=== PATIENT | male | born 1995 | race Caucasian/White ===

== ENCOUNTER 2018-02-23 07:26 | Emergency (ER) | payer MEDICAID, SELFPAY ==
[2018-02-23 07:27] VITALS: BP 129/64; PULSE 94; RESP 15; TEMP 37; O2SAT 99; BMI 24.4
--- NOTE | 2018-02-23 07:39 | CT_ITS ---
STUDY: CT ABDOMEN AND PELVIS WITH CONTRAST REASON FOR EXAM: Male, 22 years old. RIGHT FLANK PAIN. RADIATION DOSAGE (If Supplied By Facility): CTDIvol = ( 13.84 ) mGy, DLP = ( 938.81 ) mGycm TECHNIQUE: Transaxial images were obtained from the dome of the diaphragm to the symphysis pubis without oral contrast. 100ML ml of Isovue 300 contrast was administered. Sagittal and coronal images were reconstructed. Individualized dose optimization techniques were used for this CT. COMPARISON: None. FINDINGS: The visualized lung bases are unremarkable. The visualized portions of the heart are within normal limits. Normal liver. Normal gallbladder and extrahepatic biliary system. Normal spleen. Normal pancreas. Normal bilateral adrenal glands. Normal right kidney. Normal left kidney. Normal visualized stomach. Normal small intestine. Normal colon. There is non-visualization of the appendix. Normal abdominal aorta. Normal inferior vena cava. Normal retroperitoneum. Normal urinary bladder. Normal abdominal wall. Normal osseous structures. CT/Abdomen/Pelvis WITH Contrast IMPRESSION: No evidence of acute intra-abdominal or intrapelvic abnormality. Electronically Signed: Ada Urena MD at 10:13 EST Tel , Service support ,
[2018-02-23] MEDS: 0.9% Normal Saline 1,000 ML 125 ML IV (07:45)
[2018-02-23] MEDS: Ketorolac 30 MG/ML Syringe IV (07:46)
--- NOTE | 2018-02-23 07:54 | ED.VISSUMM ---
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 He states that a very odd pain that is not necessarily cramping and not necessarily stabbing. He states it is hard for him to describe but he states he is never felt it before. He denies any nausea vomiting or diarrhea. He had a bowel movement prior to arrival in the emergency department which she states was normal. He has had no anorexia. He last ate spaghetti just prior to arrival. No urinary symptoms. No fevers. It is uncomfortable for him to walk. Physical Examination: Afebrile vital signs are stable Gen: Well-nourished well-developed Head: Normocephalic atraumatic Eyes: Perrl EOMI ENT: TMs clear no rhinorrhea moist mucous membranes Neck: Supple no lymphadenopathy no JVD nontender CVS: Regular rate rhythm no murmurs normal S1-S2 Respiratory: No distress clear to auscultation bilaterally chest nontender Abdomen: Soft mild periumbilical tenderness no guarding or rebound nondistended normal bowel sounds no masses Back: Nontender Extremity: Nontender no edema Skin: Normal color no rash Neuro: alert orientated ?3 CN II-XII intact normal strength sensation reflexes gait cerebellar Psych: Normal affect normal mood Test Results: White count is normal with a normal differential. Chemistry showed a glucose of 73. Urinalysis is normal. CT the abdomen pelvis demonstrated no obvious intra-abdominal pathology. There was nonvisualization of the appendix. Emergency Department Course and Treatment: IV was established the patient received IV fluids and Toradol. Repeat examination I do not elicit any pain in the right lower quadrant. He still has a ill-defined discomfort in the periumbilical region. Patient will be written for Bentyl. He will follow-up if not improving in 24 hours. He may return to the emergency department at any time if he has concerns or is worsening or not improving. Impression: 1. Acute abdominal pain This note was generated with [employer] dictation software. It may contain incorrect words, spelling, and punctuation that were not noted in review of the chart prior to signing ED Disposition - Plan for ED Patient: Disposition: Home or Assisted Living Chief Complaint: Abd Pain Instructions: ED Abdominal Pain Unkn Cause Prescriptions: Dicyclomine HCl [Bentyl] 20 mg PO TIDAC PRN #20 cap PRN Reason: abdominal pain Referrals: Sidra Oshea MD [Primary Care Provider] - (1-2 days if not improving )
[2018-02-23 07:59] LABS: Absolute Lymphocyte Count 3.26 X10^3/ul (0.83-4.51); Absolute Neutrophil Count 5.9 X10^3/uL (2.0-7.7); Basophil# 0.05 X10^3/uL; Basophil% 0.5 % (0-1); Eosinophil# 0.17 X10^3/uL; Eosinophils% 1.6 % (0-5); Hematocrit 43.4 % (40-54); Hemoglobin 15.1 g/dl (13.0-16.5); Lymphocyte # 3.26 X10^3/ul (4.0); Lymphocyte % 31.2 % (19-41); Mean Corp Hgb Conc 34.8 g/gl (32-36); Mean Corpuscular Hgb 30.9 pg (27.0-32.0); Mean Corpuscular Volume 88.9 fL (80-94); Mean Platelet Vol. 9.7 fl (6.2-12.0); Monocyte# 1.03 X10^3/uL; Monocyte% 9.8 % (0-10); Neutrophil # 5.92 X10^3/uL (2.7-7.7); Neutrophil % 56.6 % (47-70); POSITIVE COUNT NO; POSITIVE DIFFERENTIAL NO; POSITIVE MORPHOLOGY NO; Platelet Count 290 K/mm3 (150-450); RBC Distribution Width CV 13.3 % (11.6-14.6); RBC Distribution Width SD 42.8 fl (35.1-43.9); Red Blood Count 4.88 M/mm3 (4.6-6.2); White Blood Count 10.5 K/mm3 (4.4-11.0)
[2018-02-23 08:06] LABS: Color, Urine Yellow (Yellow); Glucose, Dipstick Normal (Normal); Ketone-Dipstick Negative (Negative); Leukocyte Esterase-Dipstick Negative /ul (Negative); Mucous, Urine 0 SEEN /hpf (<or=2+); Nitrite-Dipstick Negative (Negative); Occult Blood-Urine 50 /ul (Negative); Protein-Dipstick Negative (Negative); Red Blood Cells-Urine 0 SEEN /hpf (0-5); Squamous Epithelial Cells - UA 0 SEEN /hpf (0-5); Urine Bilirubin Dipstick Negative (Negative); Urine Clarity Sl. Cloudy (Clear); Urine Urobilinogen Normal (Normal); White Blood Cells 0 SEEN /hpf (0-5)
[2018-02-23 08:12] LABS: ALB/GLOB Ratio 1.1 RATIO (0.9-2.4); AST(SGOT) 99 U/L (15-37); Alanine Aminotransfer ALT/SGPT 42 U/L (16-61); Albumin, Serum 3.9 g/dL (3.2-5.0); Alkaline Phosphatase 75 U/L (45-117); Anion Gap 5 (5-15); BUN 16 mg/dL (7-18); BUN/Creat Ratio 15.1 RATIO (10-20); Calcium,Total 8.9 mg/dL (8.5-10.1); Chloride 102 mmol/L (98-107); Creatinine, Serum 1.06 mg/dL (0.70-1.30); EST Glomerular Filtration Rate 94 mL/min (>60); Est Glom Filt Rate - Afr Amer 114 mL/min (>60); Estimated Creatinine Clearance 114.78 ml/min; Globulin 3.6 g/dL (2.2-4.2); Glucose 73 mg/dL (74-106); Lipase 56 U/L (73-393); Potassium 3.7 mmol/L (3.5-5.1); Protein, Total 7.5 g/dL (6.4-8.2); Sodium Level 136 mmol/L (136-145)
[2018-02-23 08:13] LABS: Bacteria RARE /hpf (None Seen)
[2018-02-23 09:52] VITALS: BP 120/74; PULSE 78; RESP 16; O2SAT 100
[2018-02-23 11:17] VITALS: BP 106/56; PULSE 62; PULSE 63; RESP 17; RESP 18; O2SAT 98
== END 2018-02-23 11:27 | disposition home or self-care (01) ==
PROVIDERS: Emergency Provider Emergency Medicine; Family Provider Pediatrics; PCP Pediatrics
DX: R10.33 Periumbilical pain (principal)
CPT/HCPCS: 74177; 80053; 81001; 83690; 85025; 96361; 96374; 99283; J7030; Q9967; A4216

== ENCOUNTER 2018-03-30 21:56 | Emergency (ER) | payer SELFPAY ==
[2018-03-30 21:56] VITALS: BP 131/73; PULSE 83; RESP 16; TEMP 36.2; O2SAT 98; BMI 23.7
--- NOTE | 2018-03-30 22:10 | RAD_ITS ---
STUDY: X-RAY - RIGHT HAND REASON FOR EXAM: Male, 22 years old. Medial pain status post car door injury. TECHNIQUE: 3 view(s) of the hand. COMPARISON: None. FINDINGS: There is an acute, nondisplaced fracture of the fifth metacarpal neck. There is minimal apex dorsal medial angulation. No additional fracture is identified. Joint spaces are well-maintained. Soft tissues and bony structures are otherwise unremarkable. RAD/Hand Min 3 Views IMPRESSION: Nondisplaced fracture of the fifth metacarpal neck. Electronically Signed: Lizbeth Selby MD at 22:46 EST Tel , Service support ,
--- NOTE | 2018-03-30 23:01 | ED.VISSUMM ---
- ER Visit Summary Date of Service: 03/30/18 Chief Complaint: Hand pain History of Present Illness: The patient is a 22 M who complains of right hand pain. He states that he injured his right hand earlier today. He shot it in a door. He took ibuprofen twice but it did not help the pain. Denies any previous surgeries or fractures to this hand. The pain is worse with movement. Physical Examination: Vital signs are reviewed. Right hand exam reveals tenderness to palpation of the fifth metacarpal and lateral hand area. There is swelling. Range of motion is painful. He has less than 2-second capillary refill. Test Results: Right hand x-ray reveals 5th metacarpal neck fracture Emergency Department Course and Treatment: Patient was given [place] for pain for here and for home. He was placed in a fabricated ulnar gutter splint. He will be given orthopedic follow-up Treatment Plan: [] Disposition: Discharge Impression: Right fifth metacarpal fracture This note was generated with [employer] dictation software. It may contain incorrect words, spelling, and punctuation that were not noted in review of the chart prior to signing ED Disposition - Plan for ED Patient: Chief Complaint: Upper Extremity Injury Referrals: Sidra Oshea MD [Primary Care Provider] -
--- NOTE | 2018-03-30 23:02 | ED.DEP ---
ED Disposition - Plan for ED Patient: Disposition: Home or Assisted Living Chief Complaint: Upper Extremity Injury Instructions: ED Fx Hand Closed Prescriptions: Hydrocodone Bitart/Apap 5-325 [[place] 5MG-325MG] 1 tab PO Q6H PRN PRN 3 Days #10 tab PRN Reason: Pain Referrals: Sidra Oshea MD [Primary Care Provider] - Jamaal Oshea MD [STAFF PHYSICIAN] -
[2018-03-30 23:11] VITALS: PULSE 84; RESP 16; O2SAT 98
== END 2018-03-30 23:13 | disposition home or self-care (01) ==
PROVIDERS: Emergency Provider Emergency Medicine; Family Provider Pediatrics; PCP Pediatrics
DX: S62.366A Nondisplaced fracture of neck of fifth metacarpal bone, right hand, initial encounter for closed fracture (principal); W23.0XXA Caught, crushed, jammed, or pinched between moving objects, initial encounter; Y93.9 Activity, unspecified; Y92.9 Unspecified place or not applicable; Y99.9 Unspecified external cause status; Z72.0 Tobacco use
CPT/HCPCS: 29125; 73130; 99282

== ENCOUNTER 2018-04-24 20:04 | Emergency (ER) | payer SELFPAY ==
[2018-04-24 20:06] VITALS: BP 130/73; PULSE 85; RESP 16; TEMP 36.8; O2SAT 98; BMI 22.3
--- NOTE | 2018-04-24 20:41 | ED.DCSUM_ITS ---
- ER Visit Summary Date of Service: 04/24/18 Chief Complaint: Herpes History of Present Illness: The patient is a 22 M Patient presents to the emergency department out of concern for herpes. Patient states that his partner has herpes and is on medications. They have been very careful. However over the past week he has had a burning sensation on his penile shaft and now has had lesions for the he denies any dysuria. He denies any penile discharge. Physical Examination: Afebrile vital signs stable Gen: Well-nourished well-developed Head: Normocephalic atraumatic Eyes: Perrl EOMI ENT: TMs clear no rhinorrhea moist mucous membranes Neck: Supple no lymphadenopathy no JVD nontender CVS: Regular rate rhythm no murmurs normal S1-S2 Respiratory: No distress clear to auscultation bilaterally chest nontender Abdomen: Soft nontender nondistended normal bowel sounds no masses : Just underneath the glands are several small blisters with erythematous base. Patient is circumcised. Back: Nontender Extremity: Nontender no edema Skin: Normal color no rash Neuro: alert orientated ?3 CN II-XII intact normal strength sensation reflexes gait cerebellar Psych: Normal affect normal mood Test Results: Herpes simplex culture was obtained Emergency Department Course and Treatment: Patient will be started on acyclovir 400 mg 3 times a day for 10 days. He is to follow-up with his primary care physician. He was advised that he should be screened for other STDs included but not limited to HIV and syphilis. Impression: 1. Penile herpes This note was generated with [employer] dictation software. It may contain incorrect words, spelling, and punctuation that were not noted in review of the chart prior to signing ED Disposition - Plan for ED Patient: Disposition: Home or Assisted Living Chief Complaint: Male Pain/Injury Instructions: ED Herpes Simplex Virus Type 2 Prescriptions: Acyclovir 1 tab PO TID #30 tablet Referrals: Sidra Oshea MD [Primary Care Provider] - 10-14 Days if not better Additional Instructions: You should be screened for other STDs. Please see your family physician or [facility] department.
[2018-04-24] MEDS: Acyclovir 200 MG Capsule 400 MG PO (20:50)
--- NOTE | 2018-04-24 20:53 | ED.RN ---
DISCHARGE INSTRUCTIONS GIVEN TO AND REVIEWED WITH PATIENT, PATIENT DENIES QUESTIONS OR CONCERNS AND VOICES UNDERSTANDING OF DISCHARGE INSTRUCTIONS. PT AMBULATES OUT OF ROOM WITHOUT ISSUE.
== END 2018-04-24 20:53 | disposition home or self-care (01) ==
PROVIDERS: Emergency Provider Emergency Medicine; Family Provider Pediatrics; PCP Pediatrics
DX: A60.01 Herpesviral infection of penis (principal); Z72.0 Tobacco use
CPT/HCPCS: 87529; 99283

== ENCOUNTER 2018-05-01 18:50 | Emergency (ER) | payer SELFPAY ==
[2018-05-01 18:51] VITALS: BP 121/60; PULSE 98; RESP 18; TEMP 36.9; O2SAT 99; BMI 22.4
--- NOTE | 2018-05-01 19:41 | ED.VISSUMM ---
- ER Visit Summary Date of Service: 05/01/18 Chief Complaint: Left thumb laceration History of Present Illness: The patient is a 22 M who cut his left distal thumb with a knife just prior to arrival. Patient reports being up-to-date with his tetanus immunization. He is right-hand dominant. Physical Examination: Vital signs unremarkable. Patient sitting upright in bed no acute distress. Left upper extremity examination reveals a 0.5 cm superficial laceration to the distal aspect of the left thumb. There is mild bleeding. He has full range of motion with good cap refill and sensation. Test Results: [] Emergency Department Course and Treatment: Patient is refusing sutures. Wound is cleansed. Surgifoam and gauze dressing is applied. I advised to come back and recheck the wound to make sure bleeding was well controlled, but patient left the ER prior to this being performed. Treatment Plan: [] Disposition: Discharge Impression: Left thumb laceration This note was generated with [employer] dictation software. It may contain incorrect words, spelling, and punctuation that were not noted in review of the chart prior to signing ED Disposition - Plan for ED Patient: Disposition: Home or Assisted Living Chief Complaint: Laceration Instructions: ED Laceration Hand Referrals: Sidra Oshea MD [Primary Care Provider] - As Needed
--- OUTSIDE RECORDS SUMMARY | 2018-07-03 23:36 | XMS RPT_ITS ---
:1995 Author Organization OH[facility] Care Team Providers Name Role Phone MITCHEL PAVON Attending Unavailable WANDA GOODE Referring Unavailable RENAN VILLALOBOS Primary Care Unavailable Renan Villalobos Primary Care Unavailable Fab Estrada Attending Unavailable Renan Villalobos Primary Care Unavailable Felecia Cole Attending Unavailable Villalobos, Renan Primary Care Unavailable Fab Estrada Attending Unavailable Renan Villalobos Primary Care Unavailable Robe Montanez Attending Unavailable PROBLEMS PROBLEMS DATE TYPE CONDITION / CODE ATTENDING STATUS SOURCE 03/31/2018 Unknown S62.308A - Robe Montanez Active [place] [facility] fracture of other Hospital metacarpal bone, Repository initial encounter for closed fracture / S62.308A(ICD-10) 03/19/2018 Unknown R10.9 - Fab Estrada Active [place] Unspecified Community abdominal pain / Hospital R10.9(ICD-10) Repository PROCEDURES PROCEDURES No Procedure Records FoundRESULTS RESULTS EMERGENCY DEPARTMENT Observed: 05/02/2018 Status: F Source: [place] SUMMARY 2:45 PM [facility] Medical Records Department [address] [place] [address] Emergency Department Summary 05/01/18 1941 MR#: [id number] Acct: [id number] Name: JENNIFER ROSE Rep #: [id number] : 1995 22 From: Felecia Cole MD PCP: Renan Villalobos MD Status: DEP ER - ER Visit Summary Date of Service: 05/01/18 Chief Complaint: Left thumb laceration History of Present Illness: The patient is a 22 M who cut his left distal thumb with a knife just prior to arrival. Patient reports being up-to-date with his tetanus immunization. He is right-hand dominant. Physical Examination: Vital signs unremarkable. Patient sitting upright in bed no acute distress. Left upper extremity examination reveals a 0.5 cm superficial laceration to the distal aspect of the left thumb. There is mild bleeding. He has full range of motion with good cap refill and sensation. Test Results: [] Emergency Department Course and Treatment: Patient is refusing sutures. Wound is cleansed. Surgifoam and gauze dressing is applied. I advised to come back and recheck the wound to make sure bleeding was well controlled, but patient left the ER prior to this being performed. Treatment Plan: [] Disposition: Discharge Impression: Left thumb laceration This note was generated with Family-Mingle dictation software. It may contain incorrect words, spelling, and punctuation that were not noted in review of the chart prior to signing ED Disposition - Plan for ED Patient: Disposition: Home or Assisted Living Chief Complaint: Laceration Instructions: ED Laceration Hand Referrals: Renan Villalobos MD [Primary Care Provider] - As Needed What to do if you have Problems For any increased pain, shortness of breath, bleeding, nausea or vomiting, chest pain, or any unexpected problems, contact your Primary Care Provider. Call [facility] ([phone]) or report to the closest Emergency Room. Call 911 if necessary. 05/02/18 5734 <Electronically signed by Felecia Cole MD> Date Felecia Cole MD Cosigner Signature (If Indicated): Date CC: Renan Villalobos MD DISCHARGE INSTRUCTION Observed: 05/01/2018 Status: F Source: ART 7:41 PM [facility] Medical Records Department [address] [place] [address] Discharge Instruction 05/01/181940 MR#: [id number] Acct: [id number] Name: JENNIFER ROSE Rep #: [id number] : 1995 From: Felecia Cole MD PCP: Renan Villalobos MD Status: REG ER ED Disposition - Plan for ED Patient: Disposition: Home or Assisted Living Chief Complaint: Laceration Instructions: ED Laceration Hand Referrals: Renan Villalobos MD [Primary Care Provider] - As Needed What to do if you have Problems For any increased pain, shortness of breath, bleeding, nausea or vomiting, chest pain, or any unexpected problems, contact your Primary Care Provider. Call [facility] ([phone]) or report to the closest Emergency Room. Call 911 if necessary. 05/01/181940 <Electronically signed by Felecia Cole MD> Date Felecia Cole MD Cosigner Signature (If Indicated): Date CC: Renan Villalobos MD EMERGENCY DEPARTMENT Observed: 04/25/2018 Status: F Source: [place] SUMMARY 1:22 AM [facility] Medical Records Department [address] [place] [address] Emergency Department Summary 04/24/182037 MR#: [id number] Acct: [id number] Name: JENNIFER ROSE Rep #: [id number] : 1995 22 From: Fab Estrada DO PCP: Renan Villalobos MD Status: DEP ER - ER Visit Summary Date of Service: 04/24/18 Chief Complaint: Herpes History of Present Illness: The patient is a 22 M Patient presents to the emergency department out of concern for herpes. Patient states that his partner has herpes and is on medications. They have been very careful. However over the past week he has had a burning sensation on his penile shaft and now has had lesions for the he denies any dysuria. He denies any penile discharge. Physical Examination: Afebrile vital signs stable Gen: Well-nourished well-developed Head: Normocephalic atraumatic Eyes: Perrl EOMI ENT: TMs clear no rhinorrhea moist mucous membranes Neck: Supple no lymphadenopathy no JVD nontender CVS: Regular rate rhythm no murmurs normal S1-S2 Respiratory: No distress clear to auscultation bilaterally chest nontender Abdomen: Soft nontender nondistended normal bowel sounds no masses : Just underneath the glands are several small blisters with erythematous base. Patient is circumcised. Back: Nontender Extremity: Nontender no edema Skin: Normal color no rash Neuro: alert orientated 3 CN II-XII intact normal strength sensation reflexes gait cerebellar Psych: Normal affect normal mood Test Results: Herpes simplex culture was obtained Emergency Department Course and Treatment: Patient will be started on acyclovir 400 mg 3 times a day for 10 days. He is to follow-up with his primary care physician. He was advised that he should be screened for other STDs included but not limited to HIV and syphilis. Impression: 1. Penile herpes This note was generated with Family-Mingle dictation software. It may contain incorrect words, spelling, and punctuation that were not noted in review of the chart prior to signing ED Disposition - Plan for ED Patient: Disposition: Home or Assisted Living Chief Complaint: Male Pain/Injury Instructions: ED Herpes Simplex Virus Type 2 Prescriptions: Acyclovir 1 tab PO TID #30 tablet Referrals: Renan Villalobos MD [Primary Care Provider] - 10-14 Days if not better Additional Instructions: You should be screened for other STDs. Please see your family physician or [facility]. What to do if you have Problems For any increased pain, shortness of breath, bleeding, nausea or vomiting, chest pain, or any unexpected problems, contact your Primary Care Provider. Call [facility] ([phone]) or report to the closest Emergency Room. Call 911 if necessary. 04/25/18 0122 <Electronically signed by Fab Estrada DO> Date Fba Estrada DO Cosigner Signature (If Indicated): Date CC: Renan Villalobos MD DISCHARGE INSTRUCTION Observed: 03/30/2018 Status: F Source: [place] 11:03 PM [facility] REPOSITORY [facility] Medical Records Department [address] [place] [address] [place] [address] Discharge Instruction 03/30/182301 MR#: [id number] Acct: [id number] Name: JENNIFER ROSE Rep #: [id number] : 1995 22 From: Rboe Montanez MD PCP: Renan Villalobos MD Status: REG ER ED Disposition - Plan for ED Patient: Disposition: Home or Assisted Living Chief Complaint: Upper Extremity Injury Instructions: ED Fx Hand Closed Prescriptions: Hydrocodone Bitart/Apap 5-325 [Bonner 5MG-325MG] 1 tab PO Q6H PRN PRN 3 Days #10 tab PRN Reason: Pain Referrals: Renan Villalobos MD [Primary Care Provider] - Jamaal Villalobos MD [STAFF PHYSICIAN] - What to do if you have Problems For any increased pain, shortness of breath, bleeding, nausea or vomiting, chest pain, or any unexpected problems, contact your Primary Care Provider. Call [facility] ([phone]) or report to the closest Emergency Room. Call 911 if necessary. 03/30/182302 <Electronically signed by Robe Montanez MD> Date Robe Montanez MD Cosigner Signature (If Indicated): Date CC: Renan Villalobos MD EMERGENCY DEPARTMENT Observed: 03/30/2018 Status: F Source: [place] SUMMARY 11:02 PM [facility] REPOSITORY [facility] Medical Records Department [address] [place] [address] Emergency Department Summary 03/30/18 2301 MR#: [id number] Acct: [id number] Name: JENNIFER ROSE Rep #: [id number] : 1995 22 From: Robe Montanez MD PCP: Renan Villalobos MD Status: REG ER - ER Visit Summary Date of Service: 03/30/18 Chief Complaint: Hand pain History of Present Illness: The patient is a 22 M who complains of right hand pain. He states that he injured his right hand earlier today. He shot it in a door. He took ibuprofen twice but it did not help the pain. Denies any previous surgeries or fractures to this hand. The pain is worse with movement. Physical Examination: Vital signs are reviewed. Right hand exam reveals tenderness to palpation of the fifth metacarpal and lateral hand area. There is swelling. Range of motion is painful. He has less than 2-second capillary refill. Test Results: Right hand x-ray reveals 5th metacarpal neck fracture Emergency Department Course and Treatment: Patient was given Bonner for pain for here and for home. He was placed in a fabricated ulnar gutter splint. He will be given orthopedic follow-up Treatment Plan: [] Disposition: Discharge Impression: Right fifth metacarpal fracture This note was generated with Family-Mingle dictation software. It may contain incorrect words, spelling, and punctuation that were not noted in review of the chart prior to signing ED Disposition - Plan for ED Patient: Chief Complaint: Upper Extremity Injury Referrals: Renan Villalobos MD [Primary Care Provider] - What to do if you have Problems For any increased pain, shortness of breath, bleeding, nausea or vomiting, chest pain, or any unexpected problems, contact your Primary Care Provider. Call [facility] ([phone]) or report to the closest Emergency Room. Call 911 if necessary. 03/30/18 2302 <Electronically signed by Robe Montanez MD> Date Robe Montanez MD Cosigner Signature (If Indicated): Date CC: Renan Villalobos MD HAND MIN 3 VIEWS Observed: 03/30/2018 Status: F Source: ART 10:06 PM [facility] REPOSITORY [facility] Imaging Services [address] [place] [address] Hand Min 3 Views MR#: [id number] Acct: [id number] Name: JENNIFER ROSE Rep #: [id number] : 1995 22 From: Lizbeth Selby MD PCP: Renan Villalobos MD Status: REG ER Study: Hand Min 3 Views Date of Exam: 03/30/18 Exam# [id number] Ordering Dr: Robe Montanez MD STUDY: X-RAY - RIGHT HAND REASON FOR EXAM: Male, 22 years old. Medial pain status post car door injury. TECHNIQUE: 3 view(s) of the hand. COMPARISON: None. FINDINGS: There is an acute, nondisplaced fracture of the fifth metacarpal neck. There is minimal apex dorsal medial angulation. No additional fracture is identified. Joint spaces are well-maintained. Soft tissues and bony structures are otherwise unremarkable. RAD/Hand Min 3 Views IMPRESSION: Nondisplaced fracture of the fifth metacarpal neck. Electronically Signed: Lizbeth Selby MD at 22:46 EST Tel , Service support , CC: Robe Montanez MD; Renan Villalobos MD Forging Dies Final Finisher: Signed EMERGENCY DEPARTMENT Observed: 02/26/2018 Status: F Source: [place] SUMMARY 2:54 PM [facility] REPOSITORY [facility] Medical Records Department [address] [place] [address] Emergency Department Summary 02/23/18 0754 MR#: [id number] Acct: [id number] Name: JENNIFER ROSE Rep #: [id number] : 1995 22 From: Fab Estrada DO PCP: Renan Villalobos MD Status: DEP ER - ER Visit Summary Date of Service: 02/23/18 Chief Complaint: Abdominal pain History of Present Illness: 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 He states that a very odd pain that is not necessarily cramping and not necessarily stabbing. He states it is hard for him to describe but he states he is never felt it before. He denies any nausea vomiting or diarrhea. He had a bowel movement prior to arrival in the emergency department which she states was normal. He has had no anorexia. He last ate spaghetti just prior to arrival. No urinary symptoms. No fevers. It is uncomfortable for him to walk. Physical Examination: Afebrile vital signs are stable Gen: Well-nourished well-developed Head: Normocephalic atraumatic Eyes: Perrl EOMI ENT: TMs clear no rhinorrhea moist mucous membranes Neck: Supple no lymphadenopathy no JVD nontender CVS: Regular rate rhythm no murmurs normal S1-S2 Respiratory: No distress clear to auscultation bilaterally chest nontender Abdomen: Soft mild periumbilical tenderness no guarding or rebound nondistended normal bowel sounds no masses Back: Nontender Extremity: Nontender no edema Skin: Normal color no rash Neuro: alert orientated 3 CN II-XII intact normal strength sensation reflexes gait cerebellar Psych: Normal affect normal mood Test Results: White count is normal with a normal differential. Chemistry showed a glucose of 73. Urinalysis is normal. CT the abdomen pelvis demonstrated no obvious intra-abdominal pathology. There was nonvisualization of the appendix. Emergency Department Course and Treatment: IV was established the patient received IV fluids and Toradol. Repeat examination I do not elicit any pain in the right lower quadrant. He still has a ill-defined discomfort in the periumbilical region. Patient will be written for Bentyl. He will follow-up if not improving in 24 hours. He may return to the emergency department at any time if he has concerns or is worsening or not improving. Impression: 1. Acute abdominal pain This note was generated with Family-Mingle dictation software. It may contain incorrect words, spelling, and punctuation that were not noted in review of the chart prior to signing ED Disposition - Plan for ED Patient: Disposition: Home or Assisted Living Chief Complaint: Abd Pain Instructions: ED Abdominal Pain Unkn Cause Prescriptions: Dicyclomine HCl [Bentyl] 20 mg PO TIDAC PRN #20 cap PRN Reason: abdominal pain Referrals: Renan Villalobos MD [Primary Care Provider] - (1-2 days if not improving ) What to do if you have Problems For any increased pain, shortness of breath, bleeding, nausea or vomiting, chest pain, or any unexpected problems, contact your Primary Care Provider. Call [facility] ([phone]) or report to the closest Emergency Room. Call 911 if necessary. 02/26/18 1454 <Electronically signed by Fab Estrada DO> Date Fab Estrada DO Cosigner Signature (If Indicated): Date CC: Renan Villalobos MD ABDOMEN/PELVIS WITH Observed: 02/23/2018 Status: F Source: [place] CONTRAST 7:41 AM [facility] REPOSITORY [facility] Imaging Services [address] [place] [address] Abdomen/Pelvis WITH Contrast MR#: [id number] Acct: [id number] Name: JENNIFER ROSE Rep #: [id number] : 1995 M 22 From: Ada Urena PCP: Renan Villalobos MD Status: REG ER Study: Abdomen/Pelvis WITH Contrast Date of Exam: 02/23/18 Exam# [id number] Ordering Dr: Fab Estrada DO STUDY: CT ABDOMEN AND PELVIS WITH CONTRAST REASON FOR EXAM: Male, 22 years old. RIGHT FLANK PAIN. RADIATION DOSAGE (If Supplied By Facility): CTDIvol = ( 13.84 ) mGy, DLP = ( 938.81 ) mGycm TECHNIQUE: Transaxial images were obtained from the dome of the diaphragm to the symphysis pubis without oral contrast. 100ML ml of Isovue 300 contrast was administered. Sagittal and coronal images were reconstructed. Individualized dose optimization techniques were used for this CT. COMPARISON: None. FINDINGS: The visualized lung bases are unremarkable. The visualized portions of the heart are within normal limits. Normal liver. Normal gallbladder and extrahepatic biliary system. Normal spleen. Normal pancreas. Normal bilateral adrenal glands. Normal right kidney. Normal left kidney. Normal visualized stomach. Normal small intestine. Normal colon. There is non-visualization of the appendix. Normal abdominal aorta. Normal inferior vena cava. Normal retroperitoneum. Normal urinary bladder. Normal abdominal wall. Normal osseous structures. CT/Abdomen/Pelvis WITH Contrast IMPRESSION: No evidence of acute intra-abdominal or intrapelvic abnormality. Electronically Signed: Ada Urena MD at 10:13 EST Tel , Service support , CC: Fab Estrada DO; Renan Villalobos MD Forging Dies Final Finisher: Signed CBC W/DIFF, AUTOMATED Collected: 02/23/2018 Status: F Source: [place] 7:40 AM [facility] REPOSITORY TYPE CODE TESTS RESULT OUT OF RANGE REFERENCE UNITS LAB L100.1000 4.4-11.0 K/mm3 Normal WBC 10.5 LAB L100.1200 4.6-6.2 M/mm3 Normal RBC 4.88 LAB L100.1300 13.0-16.5 g/dl Normal HGB 15.1 LAB L100.1400 40-54 % Normal HCT 43.4 LAB L100.1500 80-94 fL Normal MCV 88.9 LAB L100.1600 27.0-32.0 pg Normal MCH 30.9 LAB L100.1700 32-36 g/gl Normal MCHC 34.8 LAB L100.1810 11.6-14.6 % Normal RDW CV 13.3 LAB L100.1820 35.1-43.9 fl Normal RDW SD 42.8 LAB L100.1900 150-450 K/mm3 Normal PLT 290 LAB L100.2000 6.2-12.0 fl Normal MPV 9.7 LAB L100.2100 47-70 % Normal NEUT% 56.6 LAB L100.2200 19-41 % Normal LY% 31.2 LAB L100.2300 0-10 % Normal MONO% 9.8 LAB L100.2400 0-5 % Normal EO% 1.6 LAB L100.2500 0-1 % Normal BASO% 0.5 LAB L100.2550 0.0-0.9 % Normal IM GRAN % 0.300 Result Comment: IG% - Immature Granulocytes (promyelocytes, myelocytes and metamyelocytes) > 1% indicates that a LEFT SHIFT is Present. LAB L100.2620 2.0-7.7 X10 3/uL Normal Absolute Neut 5.9 LAB L100.2720 0.83-4.51 X10 3/ul Normal Absolute Lymph 3.26 Performed By: #### L100.0100 #### [facility] [address] [facility] [place], [address] COMPREHENSIVE METABOLIC Collected: 02/23/2018 Status: F Source: [facility] 7:40 AM [facility] REPOSITORY TYPE CODE TESTS RESULT OUT OF RANGE REFERENCE UNITS LAB L501.0100 74-106 mg/dL Low GLU 73 Result Comment: Please note revised GLUCOSE reference range effective 2017. LAB L501.1000 7-18 mg/dL Normal BUN 16 LAB L501.1100 0.70-1.30 mg/dL Normal CREAT,SERUM 1.06 Result Comment: The validity of the calculated GFR AND GFRAA in patients over 70 years has not been determined. Clinical correlation is essential. LAB L501.1110 >60 mL/min Normal EST GFR 94 Result Comment: Non- GFR Calc LAB L501.1115 >60 mL/min Normal EST GFR - AA 114 Result Comment: GFR Calc LAB L501.1255 ml/min Normal Estimated CRCL 114.78 LAB L501.1300 10-20 RATIO BUN/CRE Normal 15.1 LAB L501.1500 6.4-8. g/dL 2 T PROT Normal 7.5 LAB L501.1800 3.2-5. g/dL 0 ALB Normal 3.9 LAB L501.1950 2.2-4. g/dL 2 GLOB Normal 3.6 LAB L501.2000 0.9-2. RATIO 4 A/G Normal 1.1 LAB L501.2200 8.5-10 mg/dL .1 CA Normal 8.9 LAB L501.4100 15-37 U/L High AST 99 LAB L501.4305 45-117 U/L ALK P Normal 75 LAB L501.4405 16-61 U/L ALT Normal 42 LAB L501.4600 0.20-1 mg/dL .00 T BILI Normal 0.50 LAB L501.5300 136-14 mmol/L 5 NA Normal 136 LAB L501.5600 3.5-5. mmol/L 1 K Normal 3.7 LAB L501.5900 98-107 mmol/L CL Normal 102 LAB L501.6100 21.0-3 mmol/L 2.0 CO2 Normal 29.0 LAB L501.6200 5-15 GAP Normal 5 Performed By: #### L500.4050, L501.2450 #### [facility] [address] [place], [place], [id number] LIPASE Collected: 02/23/2018 Status: F Source: [place] 7:40 AM [facility] REPOSITORY TYPE CODE TESTS RESULT OUT OF REFERENCE UNITS RANGE LAB L501.2450 73-393 U/L Low LIPASE 56 Performed By: #### L500.4050, L501.2450 #### [facility] [address] [place], [place], [id number] URINALYSIS, COMPLETE Collected: 02/23/2018 Status: F Source: [place] 5:00 AM [facility] REPOSITORY Order Comment: How was Urine Obtained? CLEAN CATCH TYPE CODE TESTS RESULT OUT OF RANGE REFERENCE UNITS LAB L400.3000 Yellow COLOR Normal Yellow LAB L400.3050 Clear Normal CLARITY Sl. Cloudy LAB L400.3200 Normal mg/dl Normal GLUCOSE, UR Normal LAB L400.3300 Negative mg/dL Normal BILIRUBIN URINE Negative LAB L400.3400 Negative mg/dl Normal KETONE UR Negative LAB L400.3465 1.002-1.030 Normal SP.GR. DIPSTX 1.020 LAB L400.3550 5.0 - 8.0 pH UR Normal 5.0 LAB L400.3600 Negative mg/dl PROT Normal DIPSTX Negative LAB L400.3700 Normal mg/dl Normal UROBILI Normal LAB L400.3750 Negative Normal NITRITE UR Negative LAB L400.3780 Negative /ul High 50 OCCULT BLOOD-UR LAB L400.3800 Negative /ul LEUK Normal ESTERASE Negative LAB L400.4050 0-5 /hpf WBC 0 Normal SEEN LAB L400.4100 0-5 /hpf 0 Normal RBC-UA SEEN LAB L400.4150 0-5 /hpf SQUAM 0 Normal EPI SEEN LAB L400.4300 None Seen /hpf Normal BACTERIA RARE LAB L400.4350 <or=2+ /hpf 0 Normal MUCUS, URINE SEEN Performed By: #### L400.0001 #### [facility] [address] [place], [place], [address] KING Observed: 06/23/2017 Status: F Source: [place] CULT-SKIN,NAIL,HAIR 1:40 PM [facility] REPOSITORY Site Skin on arm and leg Date: 06/23/2017 Time: 1:32 PM Collected by: Marlena Dorman, BLOW DOWN OPERATOR [place] Cult-Skin,Nail,Hair: No fungi isolated. Source: SKIN Collected: 06/23/17 13:40 Site: Skin on arm and leg Received : 06/23/17 21:13 [place] Cult-Skin,Nail,Hair FINAL 07/21/17 12:52 No fungi isolated. Performed By: #### FUNGS #### [address] [address] PROGRESS NOTE Observed: 06/23/2017 Status: COMPLETED Source: [place] 1:00 PM [facility] REPOSITORY New Patient CC: Vasu Juarez is a 21 y.o. male referred for consultation at the request of Wanda Goode MD for evaluation of a rash of 7 months duration. The first skin involved was on the legs spreading to down. The rash then appeared on the arms. There has been itching which is severe at times. Treatment has included antihistamines, oral steroids times two courses (last dose 4 months ago), and topical steroids (triamcinolone and hydrocortisone). He has also had elamite for scabies treatment. There is a sleep disturbance. The rash has not been accompanied by URI or other symptoms. The patient has had a cold on and off in the last two months. The patient has a cat in the home and the cat sleeps in his bed. The cat has dandruff. Past Medical History History reviewed. No pertinent past medical history. Past Surgical History Past Surgical History: Procedure Laterality Date NO PAST SURGICAL HISTORY Allergies No Known Allergies Medications Outpatient Encounter Prescriptions as of 06/23/2017 Medication Sig Dispense Refill cetirizine (ZYRTEC) 10 MG tablet Take 1 Tab (10 mg) by mouth daily in the morning for itching. 30 Tab 3 hydrOXYzine (ATARAX) 25 MG tablet Take 1 Tab (25 mg) by mouth At bedtime For itching 30 Tab 3 [DISCONTINUED] hydrOXYzine (ATARAX) 25 MG tablet Take 1 Tab (25 mg) by mouth every 6 hours as needed for Itching 30 Tab 0 [] lidocaine-EPINEPHrine 1 %-[id number] injection 1 mL No facility-administered encounter medications on file as of 06/23/2017. Family Medical History Family History Problem Relation Age of Onset No known problems Mother No known problems Father Defects Sister cerebral palsy No known problems Brother Social History Social History Social History Marital status: Single Spouse name: N/A Number of children: N/A Years of education: N/A Occupational History Not on file. Social History Main Topics Smoking status: Never Smoker Smokeless tobacco: Never Used Alcohol use Not on file Drug use: Unknown Sexual activity: Not on file Other Topics Concern Not on file Social History Narrative No narrative on file Social History Substance Use Topics Smoking status: Never Smoker Smokeless tobacco: Never Used Alcohol use Not on file Social History Are there any pets in the home? Yes Review of Systems Review of Systems Constitutional: Negative. Gastrointestinal: Negative. Skin: Positive for itching and skin lesions. Neurological: Negative. Physical Examination Vitals: 06/23/17 1303 Temp: 36.7 C (89 F) Physical Exam Constitutional: He appears well-developed and well-nourished. He appears healthy. HENT: Head: Normocephalic and atraumatic. Mouth/Throat: Oropharynx is clear and moist. External ears and nose normal without scars, lesions or masses Eyes: Conjunctivae are normal. Right eye exhibits no discharge. Left eye exhibits no discharge. Sclera without icterus or erythema. Eyelids without lesions. Neck: Neck supple. Cardiovascular: Normal rate and intact distal pulses. Pulmonary/Chest: Effort normal. Musculoskeletal: He exhibits no edema or tenderness. Lymphadenopathy: He has no cervical adenopathy. Neurological: He is alert. Psychiatric: He has a normal mood and affect. His behavior is normal. Skin: Area of Skin Examined: abdomen, scalp, RUE, face, feet, axilla, back, hands, LUE, RLE, LLE, neck and chest. Skin exam revealed thin slightly raised ovoid and annular light pink to slightly erythematous patches on extensor surface of bilateral arms and upper thighs. Diffuse light pink macules on the extensor surface of bilateral lower legs. Assessment/Plan Jennifer was seen today for rash. Diagnoses and all orders for this visit: Rash and nonspecific skin eruption - Fungal Cult-Skin,Nail,Hair - cetirizine (ZYRTEC) 10 MG tablet; Take 1 Tab (10 mg) by mouth daily in the morning for itching. - hydrOXYzine (ATARAX) 25 MG tablet; Take 1 Tab (25 mg) by mouth At bedtime For itching - lidocaine-EPINEPHrine 1 %-1:[id number] injection 1 mL; Inject 1 mL into the skin once PLAN: What is known about the possible causes of rash including tinea corporis, nummular dermatitis, or possible cheyletiella mite (dandruff in cat) were discussed today in clinic. A shave biopsy was recommended to determine the pathophysiology of the rash. The following was recommended: Cetirizine (Zyrtec) for daytime itching Hydroxyzine before bed for itching Shave biopsy performed in clinic. The patient tolerated the procedure well. The family will be notified of biopsy results when the results are available. Fungal culture obtained. The family will be notified of results when available. If the fungal culture is negative we will plan to treat with triamcinolone 0.1% ointment. If positive fungal culture we will plan to treat with 1% terbinafine cream twice daily. Apply Vaseline to dry patches on the skin twice daily until clear. Return to clinic PRN. Plan of care, including education on the safe and effective use of medication(s) and/or medical equipment if prescribed, was discussed with the patient/family. Patient/family verbalized understanding and agreed with the treatment options discussed. Marlena Dorman, BLOW DOWN OPERATOR June 23, 2017 I have seen and evaluated the patient. I have obtained the solorzano portions of the history and physical examination which include rash x months; favor nummular dermatitis with cheyletiella mite bites; recommend vet eval for cat; biopsy and fungal culture today; start TAC oint. I have discussed the patient reviewed the documentation and agree with it. The medical decision making was done together and is as documented in the note. Mitchel Steel M.D. SURGICAL PATHOLOGY Observed: 06/23/2017 Status: F Source: [place] TEST 9:33 AM [facility] REPOSITORY SEE BELOW Result Comment: FINAL DIAGNOSIS: Skin, right thigh, shave biopsy: Subacute dermatitis with mixed dermal inflammation with scattered eosinophils. See Comment. SPECIMEN: BIOPSY- RIGHT THIGH SHAVE BIOPSY DATE OF SURGERY: 06/23/2017 CLINICAL INFORMATION: Shave biopsy; rash and nonspecific skin eruption; rash 7 months duration. GROSS DESCRIPTION: Received in formalin is a shave biopsy of white-khan skin measuring 0.7 x 0.4 cm x 0.1 cm. In the center of the biopsy is a slightly raised, yellowish nodule measuring 0.3 cm in diameter. The specimen is bisected and entirely submitted for histology. MICROSCOPIC EXAMINATION: The biopsy demonstrates epidermal acanthosis, mild spongiosis, and focal parakeratosis. There is what appears to be a subcorneal vesicle which contains serous fluid, numerous neutrophils, and lesser numbers of eosinophils. Additional focal accumulations of neutrophils and eosinophils are found within parakeratotic material, one of which is associated with a breach in the epidermis (? trauma). Neutrophils and eosinophils infiltrate the epidermis from the dermis. There are dermal perivascular infiltrates of lymphocytes and a few neutrophils and eosinophils. Neutrophils are marginating in dermal vessels. There is no evidence of leukocytoclasis. COMMENT: The case was examined by dermatopathologist Diana Brush M.D. of [facility]. The above diagnosis is hers; her additional comments are reproduced below: The histologic features are not specific, but the differential diagnosis includes atopic dermatitis, contact dermatitis, nummular dermatitis, among other entities. Clinical correlation is needed. GMS is negative for fungal hyphae. <Sign Out DrBurt Signature> DOMINIQUE HADLEY M.D.,, ASSOC. PATHOLOGIST & DIR.HEMATOLOGY 07/17/2017 Performed By: #### PINA #### [address] [address] [place] MISCELLANEOUS Collected: 06/23/2017 Status: F Source: [place] SENDOUT 12:00 AM [facility] REPOSITORY Order Comment: [facility] PATHOLOGY CONSULT [id number] 3 GLASS H&E STAINED SLIDES 1 PARRAFIN BLOCK FOR REVIEW TYPE CODE TESTS RESULT OUT OF REFERENCE UNITS RANGE LAB MMSO1(LOIN NA C) [place] Miscellaneous See Below Sendout Result Comment: Results will be incorporated into [facility] Final Pathology report. Testing Performed [address] [address] Performed By: #### MOMSO #### [address] [address] ALLERGIES ALLERGIES DATE TYPE / CODE NAME / CODE REACTION SEVERITY SOURCE 05/01/2018 Drug No Known Unknown [place] Allergy/[id number](S Allergies/F0019 [facility]) [address](RXNORM) Hospital Repository Miscellaneous NO KNOWN [place] Allergy/[id number](S ALLERGIES [facility] Hospital Repository ENCOUNTERS ENCOUNTERS ADMIT/DISCHARGE ACCOUNT ADMITTING ENCOUNTER LOCATION SOURCE NUMBER CLASS 05/01/2018/05/01/19 [id number] Emergency Art [place] 19 [facility] ing:ED Repository 04/24/2018/04/24/19 [id number] Emergency [place] Art 19 [facility] ing:ED Repository 03/30/2018/03/30/20 [id number] Emergency Art [place] 18 [facility] ing:ED Repository 02/23/2018/02/24/20 [id number] Emergency [place] 18 [facility] ing:ED Repository 06/23/2017/06/24/19 [id number] Ambulatory Building:TAMMY White [address] [place] [address] Repository PAYERS PAYERS ENCOUNTER GUARANTOR PAYER SUBSCRIBER SOURCE 05/01/2018 JENNIFER T Primary NOT GIVENUNK [place] [id number] NOLD Insurance:SELF PAY [facility] [address]Prj: [phone]) Number: Effective Repository [phone] () Date:2018-05-01 04/24/2018 JENNIFER T Primary NOT GIVENUNK [place] [id number] NOLD Insurance:SELF PAY [place] [address]Tel: [phone]) Number: Effective Repository [phone] () Date:2018-04-24 03/30/2018 JENNIFER Peterson Primary NOT GIVENUNK Art [id number] NOLD Insurance:SELF PAY [facility] [address]Ltq: (330) Number: Effective Repository [phone] () Date:2018-03-30 02/23/2018 JENNIFER Peterson Primary JENNIFER T Art [id number] Insurance:CAREURCEP SCHURINGDOB: [facility] Number: [id number] [id number] Repository [phone]: (330) Date:2018-02-23 O [phone] () [address]ATTN: [place] [address]AQ: 02/23/2018 Secondary NOT GIVENUNK [place] Insurance:SELF PAY [facility] Number: Effective Repository Date:2018-02-23 06/23/2017 JENNIFERROSLYN VALVERDE [facility]CARESOURCEP SCHURINGDOB: [facility] ulises Number: [id number] Repository TODD [id number] THIERNO FARIA Date: [place] [address]Jys: [phone] ()
== END 2018-05-01 19:41 | disposition home or self-care (01) ==
PROVIDERS: Emergency Provider Emergency Medicine; Family Provider Pediatrics; PCP Pediatrics
DX: S61.012A Laceration without foreign body of left thumb without damage to nail, initial encounter (principal); W26.0XXA Contact with knife, initial encounter; Y93.9 Activity, unspecified; Y92.9 Unspecified place or not applicable; Y99.9 Unspecified external cause status; Z72.0 Tobacco use
CPT/HCPCS: 99281

== ENCOUNTER 2020-01-09 21:58 | Emergency (ER) | payer SELFPAY ==
[2020-01-09 21:58] VITALS: BP 141/75; PULSE 65; RESP 18; TEMP 36.1; O2SAT 100; BMI 29.8
--- NOTE | 2020-01-09 22:02 | RAD_ITS ---
STUDY: X-RAY CHEST REASON FOR EXAM: Male, 24 years old. Pain with breathing on inspiration. TECHNIQUE: PA and lateral views of the chest. COMPARISON: None. FINDINGS: There is no focal consolidation. There are a few scattered punctate calcifications with may reflect underlying granulomas. Normal size heart. Normal mediastinum and jesús. Normal visualized pulmonary arteries. Normal visualized aortic arch and descending thoracic aorta. Normal visualized thoracic spine. Normal visualized ribs, clavicles, and shoulders. There is no demonstrated abnormality of the visualized soft tissue structures of the upper abdomen. RAD/Chest PA and Lateral IMPRESSION: No acute cardiopulmonary process. Electronically Signed: Loreta Kemp MD at 22:35 EDT Tel , Service support ,
--- NOTE | 2020-01-09 23:03 | ED.VIS.GEN ---
History of Present Illness Chief Complaint: Shortness of Breath Informant: Patient Onset: Days Context: Gradual Onset Timing: Continuous Current Severity: Moderate Maximum Severity: Moderate Narrative: The patient is a 24-year-old male with no significant medical history the presents to the emergency department anterior chest pain shortness of breath. The patient states that he is had an upper respiratory illness for about 4 days. He works outdoors for tree service. He states tonight, he got tightness around his sternum. He states that he was coughing and wheezing. He denies any fevers or chills. He denies any hemoptysis. He has had no history of PE or DVT. He does smoke. Prior similar symptoms: No Recent Illness/Hospitalization: No Past Medical History - Allergies and Home Meds Allergies/Adverse Reactions: Allergies No Known Allergies Allergy (Verified 01/09/20 22:01) Primary Care Physician: Sidra Oshea MD [Primary Care Provider] - Prior records reviewed: Yes Past Medical History: None Surgical History: no surgical history Smoking Status: Current every day smoker Review of Systems General: Denies: Chills, Fever, Sweats Eyes: Denies: Visual changes - bilaterally, Diplopia ENT: Denies: Rhinorrhea, Sore throat Cardiovascular: Denies: Chest pain, Palpitations Respiratory: Reports: Dyspnea, Cough. Denies: Dyspnea on exertion Gastrointestinal: Denies: Abdominal pain, Nausea, Vomiting, Diarrhea, Melena, Hematochezia Genitourinary: Denies: Dysuria, Hematuria, Frequency Musculoskeletal: Denies: Back pain, Extremity Pain Skin: Denies: Rash, Wounds Neurological: Denies: Headache, Weakness, Numbness Physical Exam Vital Signs/Narrative: Vital Signs Temp Pulse Resp BP Pulse Ox 01/09/20 21:58 97.0 F L 65 18 141/75 H 100 Inital Vital Signs reviewed: Yes General: Well nourished, Well developed, No Acute Distress Head: Normocephalic, Atraumatic Eyes: Perrl, EOMI ENT: Moist mucous membranes, No rhinorrhea Neck: Supple, Nontender Cardiovascular: Regular rate, Regular rhythm, No murmurs Respiratory: No distress, Wheezing, Chest tenderness Abdomen: Soft, Nontender, Nondistended, Normal bowel sounds Back: Nontender, Normal Inspection Extremities: Nontender, No edema Skin: Normal color, No rash Neurological: Alert, Oriented x3, Cranial nerves II-XII grossly intact, Normal Strength, Normal Sensation Psychological: Normal affect, Normal Mood Diagnostic/Tx/Re-eval Clinical Impression(s) from Imaging Studies Chest X-Ray 01/09/20 22:02 IMPRESSION: No acute cardiopulmonary process. Electronically Signed: Loreta Kemp MD at 22:35 EDT Tel , Service support , - Medical Decision Making Patient presents with cough, wheezing, and anterior chest pain. He is not hypoxic or tachypneic. The patient is PE RC negative. Chest x-ray was obtained. There is no evidence of pneumothorax, infiltrative process, or rib fracture. I do not feel that the patient requires antibiotics. I am going to treat him with an inhaler and a short burst of prednisone. He is comfortable with this plan of care and will be discharged home. Impression 1. Bronchitis with bronchospasm ED Disposition - Plan for ED Patient: Instructions: ED Upper Resp Infec No Abx Tx Prescriptions: Prednisone [Deltasone] 60 mg PO DAILY #15 tab Prescription Printed Referrals: Sidra Oshea MD [Primary Care Provider] -
[2020-01-10] MEDS: predniSONE 20 MG Tablet 60 MG PO (00:11)
[2020-01-10 00:12] VITALS: O2SAT 99
[2020-01-10 00:16] VITALS: BP 133/73; PULSE 71; RESP 16; O2SAT 98
== END 2020-01-10 00:17 | disposition home or self-care (01) ==
PROVIDERS: Emergency Provider Emergency Medicine; PCP Pediatrics
DX: J40 Bronchitis, not specified as acute or chronic (principal); J98.01 Acute bronchospasm; F17.200 Nicotine dependence, unspecified, uncomplicated
CPT/HCPCS: 71046; 99283

== ENCOUNTER 2023-05-13 20:53 | Emergency (ER) | payer OTHER, SELFPAY ==
[2023-05-13 20:54] VITALS: BP 121/70; PULSE 77; RESP 16; TEMP 36.8; O2SAT 100; BMI 25.1
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
[2023-05-13] MEDS: Ibuprofen 600 MG Tablet PO (21:29)
--- NOTE | 2023-05-13 21:40 | RAD_ITS ---
STUDY: X-RAY - RIGHT ANKLE REASON FOR EXAM: Male, 27 years old. injury TECHNIQUE: 3 view(s) of the ankle. COMPARISON: None. FINDINGS: Normal visualized distal tibia and fibula. Normal medial and lateral malleoli. Normal tibiotalar articulation and ankle mortise. Normal visualized talus and calcaneus. The visualized subtalar, talonavicular, calcaneocuboid and tarsal articulations are normal. There is no demonstrated fracture. Minimal soft tissue swelling at the ankle. RAD/Ankle min 3 Views IMPRESSION: Minor soft tissue swelling otherwise normal x-ray examination of the ankle. Electronically Signed: Flora Guerin MD at 22:21 EST ,
--- NOTE | 2023-05-13 21:40 | RAD_ITS ---
STUDY: X-RAY - RIGHT FOOT CLINICAL: Male, 27 years old. injury TECHNIQUE: 3 view(s) of the foot. COMPARISON: None. FINDINGS: Normal talus, calcaneus, and tarsal bones. Normal visualized subtalar, talonavicular, calcaneocuboid, tarsal and tarsometatarsal articulations. Normal metatarsi. Normal metatarsophalangeal joint of the great toe. Normal tibial and fibular sesamoid bones. Normal interphalangeal joint of the great toe. Normal phalanges of the great toe. Normal second through fifth metatarsophalangeal joints. Normal interphalangeal joints and phalanges of the lesser toes. The soft tissue structures are unremarkable. There is no demonstrated fracture. RAD/Foot min 3 Views IMPRESSION: Unremarkable x-ray examination of the foot with no distinct fracture or subluxation seen.. Electronically Signed: Flora Guerin MD at 22:41 EST ,
[2023-05-13 22:10] VITALS: BP 118/60; PULSE 77; RESP 18; TEMP 36.7; O2SAT 99
== END 2023-05-13 22:11 | disposition home or self-care (01) ==
PROVIDERS: Emergency Provider Emergency Medicine; PCP Pediatrics; Visit Provider Emergency Medicine
DX: S93.401A Sprain of unspecified ligament of right ankle, initial encounter (principal); S90.31XA Contusion of right foot, initial encounter; W19.XXXA Unspecified fall, initial encounter; Y92.019 Unspecified place in single-family (private) house as the place of occurrence of the external cause; F17.210 Nicotine dependence, cigarettes, uncomplicated
CPT/HCPCS: 73610; 73630; 99282